=== PATIENT | female | born 1985 | race American Indian/Alaskan Native ===

== ENCOUNTER 2017-12-21 10:54 | Emergency (ER) | payer MEDICAID ==
[2017-12-21 10:55] VITALS: BMI 22.4
[2017-12-21 11:08] VITALS: TEMP 99.4
--- NOTE | 2017-12-21 11:22 | ED PDOC ---
Arrival/HPI - General Chief Complaint: Back Pain Time Seen by Provider: 12/21/17 10:57 Historian: Patient - History of Present Illness Narrative History of Present Illness (Text): 12/21/17 11:18 32yo female with PMHx of sickle cell disease, Asthma, Avascular necrosis who present with complaint of lower back and b/l leg pain. States is her typical pain with sickle cell crisis. States she is from [facility] and visiting a friend here. Notes that she usually gets 3mg of Dilaudid with Benadryl. Asking for the Dilaudid. She denies chest pain, cough, SOB, diaphoresis, abdominal pain , trauma, any other complaint. Past Medical History - Provider Review Nursing Documentation Reviewed: Yes - Infectious Disease Hx of Infectious Diseases: None - Tetanus Immunization Tetanus Immunization: Unknown - Reproductive Menopause: No - Cardiac Hx Cardiac Disorders: No - Pulmonary Hx Respiratory Disorders: Yes Hx Asthma: Yes - Neurological Hx Neurological Disorder: No - HEENT Hx HEENT Disorder: No - Renal Hx Renal Disorder: No - Endocrine/Metabolic Hx Endocrine Disorders: No - Hematological/Oncological Hx Sickle Cell Disease: Yes Other/Comment: blood clot on the left clavicular area - Integumentary Hx Dermatological Disorder: No - Musculoskeletal/Rheumatological Hx Musculoskeletal Disorders: No - Gastrointestinal Hx Gastrointestinal Disorders: No - Genitourinary/Gynecological Hx Genitourinary Disorders: No - Psychiatric Hx Psychophysiologic Disorder: No Hx Substance Use: No - Surgical History Hx Section: Yes Hx Cholecystectomy: Yes Hx Tubal Ligation: Yes - Anesthesia Hx Anesthesia: Yes Hx Anesthesia Reactions: No Hx Malignant Hyperthermia: No - Suicidal Assessment Feels Threatened In Home Enviroment: No Family/Social History - Physician Review Nursing Documentation Reviewed: Yes Family/Social History: Unknown Family HX Smoking Status: Light Smoker < 10 Cigarettes Daily Hx Alcohol Use: No Hx Substance Use: No Hx Substance Use Treatment: No Allergies/Home Meds Allergies/Adverse Reactions: Allergies cephalexin [From Keflex] Allergy (Verified 12/21/17 11:10) RASH clindamycin Allergy (Verified 12/21/17 11:10) RASH ketorolac [From Toradol] Allergy (Verified 12/21/17 11:10) RASH morphine Allergy (Verified 12/21/17 11:10) RASH Penicillins Allergy (Verified 12/21/17 11:10) RASH Home Medications: Home Meds Medication Instructions Recorded Confirmed Dabigatran [Pradaxa] 150 mg PO BID 01/03/15 12/21/17 Folic Acid 1 mg PO DAILY 01/03/15 12/21/17 Hydroxyurea [Hydrea] 500 mg PO BID 01/03/15 12/21/17 Gabapentin [Neurontin] 800 mg PO TID 12/21/17 12/21/17 Review of Systems - Physician Review All systems were reviewed & negative as marked: Yes - Review of Systems Constitutional: Normal Eyes: Normal ENT: Normal Respiratory: Normal Cardiovascular: Normal Gastrointestinal: Normal Genitourinary Female: Normal Musculoskeletal: Arthralgias (B/L leg), Back Pain Skin: Normal Neurological: Normal Endocrine: Normal Hemo/Lymphatic: Normal Psychiatric: Normal Physical Exam Vital Signs Reviewed: Yes Vital Signs Temp Pulse Resp BP Pulse Ox 12/21/17 12:24 99.4 F 96 H 18 131/71 99 12/21/17 11:05 99.4 F 101 H 20 135/74 97 Temperature: Afebrile Blood Pressure: Normal Pulse: Regular Respiratory Rate: Normal Appearance: Positive for: Well-Appearing, Non-Toxic, Comfortable Pain Distress: None Mental Status: Positive for: Alert and Oriented X 3 - Systems Exam Head: Present: Atraumatic, Normocephalic Pupils: Present: PERRL Extroacular Muscles: Present: EOMI Conjunctiva: Present: Normal Mouth: Present: Moist Mucous Membranes Neck: Present: Normal Range of Motion Respiratory/Chest: Present: Clear to Auscultation, Good Air Exchange. No: Respiratory Distress, Accessory Muscle Use Cardiovascular: Present: Regular Rate and Rhythm, Normal S1, S2. No: Murmurs Abdomen: Present: Normal Bowel Sounds. No: Tenderness, Distention, Peritoneal Signs Back: Present: Normal Inspection. No: Midline Tenderness, Paraspinal Tenderness Upper Extremity: Present: Normal Inspection. No: Cyanosis, Edema Lower Extremity: Present: Normal Inspection, Normal ROM, Neurovascularly Intact. No: Edema, CALF TENDERNESS, Tenderness, Swelling Neurological: Present: GCS=15, CN II-XII Intact, Speech Normal Skin: Present: Warm, Dry, Normal Color. No: Rashes Psychiatric: Present: Alert, Oriented x 3, Normal Insight, Normal Concentration Medical Decision Making ED Course and Treatment: 12/21/17 19:40 PT requested IM analgesic . Declined any intravenous access. she states she is a "hard stick" and wants IM medication. She declined Morphine and requested for Dilaudid. she was verbally loud and abusive in ED to different staffs. After attempt to get blood from patient by 2different nurses, she was told that a Phelbotomist will get the blood. While waiting for the Separator Inserter she requested for another pain medication and Dilaudid was given. She then stated that she wants to leave the ED refusing lab work. She was advised on the risk of disability and that can happen without proper evaluation and treatment. She notes understanding of these risk and still insist on signing out AMA. She was AAO x3 and capable of making this decision. she was advised to f/u with her PMD and understands to return to ED at anytime she changes her mind. - Medication Orders Current Medication Orders: Discontinued Medications Diphenhydramine HCl (Benadryl) 25 mg IM STAT STA Stop: 12/21/17 11:34 Last Admin: 12/21/17 11:48 Dose: 25 mg IM Administration Charges Document 12/21/17 11:48 LA (Rec: 12/21/17 11:48 LA [id number]) Injection Site MAR Injection Site Left Deltoid Charges for Administration # of IM Administrations 1 Hydromorphone HCl (Dilaudid) 1 mg IM ONCE STA Stop: 12/21/17 12:06 Last Admin: 12/21/17 12:31 Dose: Morphine Sulfate (Morphine) 1 mg IM STAT STA Stop: 12/21/17 11:54 Last Admin: 12/21/17 11:58 Dose: Not Given Non-Admin Reason: Patient Refused Disposition/Present on Arrival - Present on Arrival Any Indicators Present on Arrival: No History of DVT/PE: No History of Uncontrolled Diabetes: No Urinary Catheter: No History of Decub. Ulcer: No History Surgical Site Infection Following: None - Disposition Have Diagnosis and Disposition been Completed?: Yes Diagnosis: Sickle cell crisis Disposition: AGAINST MEDICAL ADVICE Disposition Time: 14:00 Condition: STABLE Referrals: PCP,NO [Primary Care Provider] - Follow up with primary Forms: Consert ([place])
[2017-12-21] MEDS ORDERED: HYDROmorphone 1 mg/ml ISec IM STA ×2 (11:33→12:03)
[2017-12-21] MEDS ORDERED: DiphenhydrAMINE 50 mg/ml Inj IM STA (11:33)
[2017-12-21] MEDS ORDERED: Morphine 2 mg/ml ISec ONE (11:42)
[2017-12-21] MEDS ORDERED: Morphine 2 mg/ml ISec IM STA (11:53)
[2017-12-21 12:25] VITALS: BP 131/71; PULSE 96; RESP 18; O2SAT 99
[2017-12-21] MEDS: HYDROmorphone 0.5 mg/0.5 ml ISec IM STA (12:31)
[2017-12-21] MEDS ORDERED: HYDROmorphone 0.5 mg/0.5 ml ISec IM STA (13:37)
[2017-12-22] MEDS: HYDROmorphone 0.5 mg/0.5 ml ISec IM STA (00:44)
== END 2017-12-21 14:00 | disposition left against medical advice (07) ==
LOC: ED 10:54
DX: D57.00 Hb-SS disease with crisis, unspecified (principal); F17.210 Nicotine dependence, cigarettes, uncomplicated
CPT/HCPCS: 96372; 99285; J1170; J1200